=== PATIENT | male | born 1990 | race Asian ===

== ENCOUNTER 2020-06-15 23:14 | Emergency (ER) | payer OTHER ==
[2020-06-15 23:37] VITALS: BP 113/67; PULSE 67; TEMP 97.8; BMI 20.7
[2020-06-16] MEDS ORDERED: diphenhydrAMINE HCL 25 MG CAPSULE (FP) PO ONE (00:08)
[2020-06-16] MEDS ORDERED: BETAMETHASONE DIP 0.05% TP LOTION 30 ML BOTTLE TP SCH (00:15)
--- NOTE | 2020-06-16 00:16 | PDOC ---
History of Present Illness - General Chief Complaint: Rash Stated Complaint: POISION BRYON Time Seen by Provider: 06/15/20 23:44 History Source: Patient Exam Limitations: No Limitations - History of Present Illness Initial Comments: 06/16/20 06:33 30y M with no significant PMH presenting to to the ER for rash. Pt states 2 weeks ago he went apple picking at a location that had poison [place]. The next day he had a rash on the R elbow. Pt has been putting calamine lotion and using Benadryl for the itching but noticed that the rash has been spreading to the other arm, on patches on his abdomen and the R anterior thigh. Denies fever, chills, chest pain, sob, n/v/d, abdominal pain. Denies joint pain, headaches. Past History - Medical History Allergies/Adverse Reactions: Allergies Allergy/AdvReac Type Severity Reaction Status Date / Time No Known Allergies Allergy Verified 06/16/20 00:13 Home Medications: Ambulatory Orders Methylprednisolone [Medrol Dose Otto] 4 mg PO ASDIR #21 tablet 06/16/20 - Psycho-Social/Smoking History Smoking History: Never smoked Have you smoked in the past 12 months: No Information on smoking cessation initiated: No - Substance Abuse Hx (Audit-C & DAST Scrn) How often the patient has a drink containing alcohol: Never Score: In Men: 4 or > Positive; In Women: 3 or > Positive: 0 Screen Result (Pos requires Nsg. Audit-10AR): Negative In the last yr the pt used illegal drug/Rx for NonMed reason: No Score: Yes response is considered Positive: 0 Screen Result (Positive result requires Nsg. DAST-10): Negative Review of Systems - Review of Systems Constitutional: No: Symptoms Reported HEENTM: No: Symptoms Reported Respiratory: No: Symptoms reported Cardiac (ROS): No: Symptoms Reported ABD/GI: No: Symptoms Reported : No: Symptoms Reported Musculoskeletal: No: Symptoms Reported Integumentary: Yes: See HPI Neurological: No: Symptoms reported *Physical Exam - Vital Signs Last Vital Signs Temp Pulse Resp BP Pulse Ox 97.8 F 67 18 113/67 97 06/15/20 23:33 06/15/20 23:33 06/15/20 23:33 06/15/20 23:33 06/15/20 23:33 - Physical Exam General Appearance: Yes: Nourished, Appropriately Dressed. No: Apparent Distress HEENT: positive: EOMI, BHAVANI, Pharynx Normal Neck: positive: Trachea midline, Supple Respiratory/Chest: positive: Lungs Clear, Normal Breath Sounds. negative: Wheezing Cardiovascular: positive: Regular Rhythm, Regular Rate, S1, S2. negative: Edema, JVD, Murmur Gastrointestinal/Abdominal: positive: Normal Bowel Sounds, Soft. negative: [place] Musculoskeletal: positive: Normal Inspection. negative: CVA Tenderness Extremity: positive: Normal Capillary Refill. negative: Pedal Edema, Swelling Integumentary: positive: Normal Color, Dry, Warm, Other (area of erythema with clear vesicles on R elbow and wrist, L forearm, R anterior thigh proximal to knee, in patches on sides of abomen. No fluctuance or induration, no warmth. Defined borders. ) Neurologic: positive: rn admission II-XII NML intact, Fully Oriented, Alert, Normal Mood/Affect, Normal Response, Motor Strength 5/5 Medical Decision Making - Medical Decision Making 06/16/20 06:36 30y M presenting with rash from poison bryon/oak. vitals wnl. low suspicion for infectious process. likely contact dermatitis with residual oils from irritant. will give betamethasone cream, benadryl and medrol dose pack. care instructions and return precautions provided. will dc. Discharge - Discharge Information Problems reviewed: Yes Clinical Impression/Diagnosis: Contact dermatitis Qualifiers: Contact dermatitis type: irritant Contact dermatitis trigger: oil Qualified Code(s): L24.1 - Irritant contact dermatitis due to oils and greases Condition: Good Disposition: HOME - Admission No - Additional Discharge Information Prescriptions: Methylprednisolone [Medrol Dose Otto] 4 mg PO ASDIR #21 tablet - Follow up/Referral - Patient Discharge Instructions Patient Printed Discharge Instructions: Poison [place], Poison [place], Poison [place] Additional Instructions: You were seen in the ER for a rash from poison [place]ry[place]. This does not look like an infectious rash. I recommend using the calamine lotion as well as the steroid cream. Apply the steroid cream to the affected areas up to twice a day. Do not apply it on the face. A prescription for a steroid was sent to the pharmacy. Take it as directed. You can take Benadryl as needed for the itching. Come back to the ER if you have worsening rash, have fever, have difficulty breathing or if any new or concerning symptom develops. Thank you - Post Discharge Activity
--- NOTE | 2020-06-16 01:29 | PDOC ---
Attending Attestation - Resident Resident Name: Nevaeh Vogt - ED Attending Attestation I have performed the following: I have examined & evaluated the patient, The case was reviewed & discussed with the resident, I agree w/resident's findings & plan, Exceptions are as noted - HPI HPI: 06/16/20 04:12 30M with poison [place] exposure while apple picking, here 2/2 discomfort and spread of lesions - Physicial Exam PE: 06/16/20 06:58 Agree with documented exam - Medical Decision Making 06/16/20 04:12 Likely mechanical spread of lesions, inconsistent with superinfection symptomatic tx dc Discharge - Discharge Information Problems reviewed: Yes Clinical Impression/Diagnosis: Contact dermatitis Qualifiers: Contact dermatitis type: irritant Contact dermatitis trigger: oil Qualified Code(s): L24.1 - Irritant contact dermatitis due to oils and greases Condition: Good Disposition: HOME - Additional Discharge Information Prescriptions: Methylprednisolone [Medrol Dose Otto] 4 mg PO ASDIR #21 tablet - Follow up/Referral - Patient Discharge Instructions Patient Printed Discharge Instructions: Poison [place], Poison [place], Poison [place] Additional Instructions: You were seen in the ER for a rash from poison [place]. This does not look like an infectious rash. I recommend using the calamine lotion as well as the steroid cream. Apply the steroid cream to the affected areas up to twice a day. Do not apply it on the face. A prescription for a steroid was sent to the pharmacy. Take it as directed. You can take Benadryl as needed for the itching. Come back to the ER if you have worsening rash, have fever, have difficulty breathing or if any new or concerning symptom develops. Thank you - Post Discharge Activity
== END 2020-06-16 00:30 | disposition home or self-care (01) ==
LOC: JER 23:14
DX: L24.1 Irritant contact dermatitis due to oils and greases (principal)
CPT/HCPCS: 99283-25